=== PATIENT | male | born 1995 | race Caucasian/White ===

== ENCOUNTER 2016-12-21 10:46 | Day surgery (SDC) | payer OTHER ==
[2016-12-21] VITALS (8 sets, daily range): BP systolic 100–110; BP diastolic 64–71; PULSE 70–90; RESP 16–46; Ht 182.9 cm; Wt 91.0 kg
[~2016-12-21] VITALS: Ht 182.9 cm; Wt 91.0 kg
[2016-12-21] MEDS ORDERED: METO25TA4 PO (11:19)
[2016-12-21] MEDS ORDERED: APIX5TAB PO (11:19)
[2016-12-21] MEDS ORDERED: FENTAnyl 50 MCG/ML VIAL ONE (11:59)
[2016-12-21] MEDS ORDERED: MIDAZOLAM 1 MG/ML 2 ML INJ ONE (11:59)
[2016-12-21] MEDS ORDERED: ETOMIDATE 20 MG INJ ONE (11:59)
[2016-12-21] MEDS ORDERED: PROPOFOL 20 ML ONE (11:59)
[2016-12-21] MEDS ORDERED: EPHEDrine SULFATE 50 MG/5 ML SYG ONE (12:00)
--- NOTE | 2016-12-21 12:34 | HP ---
Date/Time of Note Date/Time of Note DATE: 12/21/16 TIME: 12:32 Assessment/Plan VTE Prophylaxis VTE Prophylaxis Intervention: heparin Lines/Catheters IV Catheter Type (from Nrsg): Saline Lock Assessment/Plan Chief Complaint/Hosp Course Impression: Atrial fibrillation Atrial flutter Abnormal EKG Shortness of breath Recommendation/plan: proceed with SPIKE guided cardioversion Problems: HPI/ROS Admit Date/Time Admit Date/Time Hx of Present Illness The patient is here for elective SPIKE cardioversion for atrial fibrillation. PMH/Family/Social Social History Smoking Status: Never smoker Exam/Review of Systems Vital Signs Vitals Vital Signs Date Time Temp Pulse Resp B/P Pulse Ox O2 Delivery O2 Flow Rate FiO2 12/21/16 12:00 97.6 90 20 110/71 100 Room Air Exam Constitutional: alert, oriented, well developed Psych: nl mood/affect, no complaints Head: atraumatic, normocephalic Eyes: EOMI, PERRL, nl conjunctiva, nl lids, nl sclera ENMT: nl external ears & nose, nl lips & teeth, nl nasal mucosa & septum Neck: non-tender, supple Respiratory: clear to auscultation, normal air movement Cardiovascular: nl pulses, regular rate and rhythm Gastrointestinal: nl liver, spleen, non-tender, soft Musculoskeletal: nl extremities to inspection Extremities: normal pulses Neurological: [employer] HEL[employer] II-XII intact, nl mental status, nl speech, nl strength Skin: nl turgor, No rash or lesions Lymph: nl lymph nodes JASON WAKEFIELD Dec 21, 2016 12:33
--- NOTE | 2016-12-21 12:55 | EN ---
Date/Time of Note Date/Time of Note DATE: 12/21/16 TIME: 12:48 Event Note Cardiology Cardiology Event Note Date: 12/21/2016 Procedure: Synchronized DC Electrical Cardioversion and Trans-esophageal Echocardiogram. Patient Safety Manager: Dion Wakefield MD Pre-procedure diagnosis: Atrial Flutter Post-procedure diagnosis: Religion of sinus rhythm. Description of procedure: Patient placed on manager cardiac cath, pads in AP position. IV propofol administered by Anesthesia MD. SPIKE probe was advanced gently and esophagus successfully intubated. After no intracardiac thrombus was confirmed by SPIKE the patient was given 120J synchronized DC cardioversion. Post procedure EKG confirmed normal sinus rhythm. Complications: none immediate. Disposition: discharge home. DION WAKEFIELD Dec 21, 2016 12:54
--- NOTE | 2016-12-21 13:54 | RADRPT ---
Vent Rate: 70 bpm RR Interval: 0 msec NM Interval: 0 msec QRS Duration: 106 msec QT Interval: 402 msec QTC Interval: 434 msec P-R-T [place]: 0 - 87 - 78 degrees Atrial flutter with variable AV block RSR' pattern in V1 suggests right ventricular conduction delay Inferior infarct, possibly acute Abnormal ECG Electronically Signed By: Rayo Gonsalez [id number]
--- NOTE | 2016-12-21 13:55 | RADRPT ---
Vent Rate: 61 bpm RR Interval: 0 msec [place] Interval: 160 msec QRS Duration: 96 msec QT Interval: 424 msec QTC Interval: 426 msec P-R-T [place]: 61 - 87 - 80 degrees Normal sinus rhythm Incomplete right bundle branch block Lateral infarct , age undetermined Abnormal ECG Electronically Signed By: Rayo Gonsalez [id number]
--- NOTE | 2016-12-24 13:18 | RADRPT ---
Vent Rate: 71 bpm RR Interval: 0 msec [place] Interval: 184 msec QRS Duration: 88 msec QT Interval: 398 msec QTC Interval: 432 msec P-R-T [place]: 63 - 31 - 31 degrees Normal sinus rhythm Normal ECG Electronically Signed By: Rayo Gonsalez [id number]
== END 2016-12-21 14:10 | disposition home or self-care (01) ==
LOC: SDS 10:46
PROVIDERS: ATTEND Internal Medicine
DX: I48.91 Unspecified atrial fibrillation (principal); I48.92 Unspecified atrial flutter; R94.31 Abnormal electrocardiogram [ECG] [EKG]
CPT/HCPCS: 93005; 93312; 93320; 93325; J2250; J3010